=== PATIENT | male | born 1975 | race Caucasian/White ===

== ENCOUNTER 2018-07-10 00:05 | Inpatient (IN) | payer SELFPAY ==
[2018-07-10] MEDS ORDERED: SODIUM CHLORIDE 0.9% 1000 ML INFUS.BAG IV ONE (02:00)
[2018-07-10] MEDS ORDERED: THIAMINE HCL 100 MG TABLET (FP) PO ONE (02:01)
[2018-07-10] MEDS ORDERED: FOLIC ACID 1 MG TABLET (FP) PO ONE (02:01)
[2018-07-10 02:31] LABS: BASO % 0.3 % (0-2.0); EOS % 0.8 % (0-4.5); HEMATOCRIT 43.9 % (35.4-49); HEMOGLOBIN 14.9 GM/dL (11.7-16.9); LYMPH % 49.8 % (8-40); MCHC 33.9 g/dl (32.0-35.9); MEAN CELL VOLUME 94.4 fl (80-96); MONO % 5.7 % (3.8-10.2); NEUT % 43.4 % (42.8-82.8); PLATELET COUNT 184 K/MM3 (134-434); RBC 4.65 M/mm3 (4.00-5.60); RDW 13.1 % (11.9-15.9); WHITE BLOOD COUNT 6.5 K/mm3 (4.0-10.0)
[2018-07-10] MEDS ORDERED: THIAMINE HCL 100 MG TABLET (FP) ONE (02:34)
[2018-07-10] MEDS ORDERED: FOLIC ACID 1 MG TABLET (FP) ONE (02:35)
--- NOTE | 2018-07-10 02:52 | PDOC ---
History of Present Illness - General Chief Complaint: Alcohol intoxication Stated Complaint: INTOX Time Seen by Provider: 07/10/18 01:26 History Source: Patient Exam Limitations: No Limitations - History of Present Illness Initial Comments: 07/10/18 02:51 42 yo male with h/o etoh abuse, epilepsy and withdrawal seizures, was sober for 6 mo, recently relapsed and drinking for 2 weeks. here with his partner who states pt has been having seizures frequently during night over last few weeks. patient states he would like to detox. has been through detox before. pt states last drink was just prior to arrival . no trauma. denies any n/v. prior to drinking pt was having seizures every few years. per his partner, pt has strong family h/o epilepsy has been having seizures since he was a teenager, but has not seen a nuerologist and refuses to take medication for it. he also started drinking at an early age in teen years. 07/10/18 03:02 Past History - Past Medical History Allergies/Adverse Reactions: Allergies Allergy/AdvReac Type Severity Reaction Status Date / Time No Known Allergies Allergy Verified 07/10/18 02:06 - Suicide/Smoking/Psychosocial Hx Smoking History: Current some day smoker Have you smoked in the past 12 months: Yes Information on smoking cessation initiated: No Hx Alcohol Use: Yes Drug/Substance Use Hx: No Review of Systems - Review of Systems Constitutional: No: Chills, Diaphoresis HEENTM: No: Eye Pain Respiratory: No: Cough, Orthopnea Cardiac (ROS): No: Chest Pain, Edema : No: Burning, Dysuria, Discharge Musculoskeletal: No: Back Pain All Other Systems: Reviewed and Negative *Physical Exam - Vital Signs Last Vital Signs Temp Pulse Resp BP Pulse Ox 98.2 F 96 H 17 136/85 97 07/10/18 00:05 07/10/18 00:05 07/10/18 00:05 07/10/18 00:05 07/10/18 00:05 - Physical Exam Comments: 07/10/18 03:04 awake alert lungs clear bilaterally heart rrr no mrg abd soft nt nd. ext wwp no edema. alert oriented x 3. moves all four ext. Heart Score/ECG Review #1 ECG reviewed & interpreted by me at: 06:48 General ECG Interpretation: Sinus Rhythm, Normal Rate (65), Normal Intervals, No acute ischemic changes ED Treatment Course - LABORATORY CBC & Chemistry Diagram: 07/10/18 02:25 07/10/18 02:25 - ADDITIONAL ORDERS Additional order review: 07/10/18 02:25 RBC 4.65 MCV 94.4 MCHC 33.9 RDW 13.1 MPV 7.0 L Neutrophils % 43.4 Lymphocytes % 49.8 H Monocytes % 5.7 Eosinophils % 0.8 Basophils % 0.3 - Medications Given in the ED: ED Medications Discontinued Medications Generic Name Dose Route Start Last Admin Trade Name Dayna PRN Reason Stop Dose Admin Folic Acid 1 mg 07/10/18 02:01 07/10/18 02:39 Folic Acid - PO 07/10/18 02:02 1 mg ONCE ONE Administration Sodium Chloride 1,000 ml 07/10/18 02:00 07/10/18 02:27 Normal Saline - IV 07/10/18 02:01 1,000 ml ONCE ONE Administration Thiamine HCl 100 mg 07/10/18 02:01 07/10/18 02:39 Vitamin B1 - PO 07/10/18 02:02 100 mg ONCE ONE Administration Medical Decision Making - Medical Decision Making 07/10/18 03:05 42 yo M h/o seizure disorder, etoh abuse, here with recent binging, and frequent seizures per his partner. differential etoh intox, electrolyte abnoramlity, withdrawal vs. epileptic seizures. plan labs ivf, thiamine folate. when clear will d/w [facility] for possible detox. 07/10/18 04:07 pt intoxicated etoh level 350. given ativan 2 mg iv for agitation. noted elevated liver enzymes, d/w pt and his . will require admission for h/o withdrawal seizure, sobriety, called [facility] no answer 07/10/18 05:27 d/w admitting team. nessa admit for etoh withdrawal. *DC/Admit/Observation/Transfer Diagnosis at time of Disposition: Seizure disorder, Alcohol intoxication - Discharge Dispostion Condition at time of disposition: Fair Decision to Admit order: Yes - Referrals - Patient Instructions - Post Discharge Activity
[2018-07-10 03:09] LABS: COCAINE, UR NEGATIVE ng/ml (CUTOFF=300); METHADONE, UR NEGATIVE ng/ml (CUTOFF=300); OPIATES, URI NEGATIVE ng/ml (CUTOFF=300); PHENCYCLIDINE,URINE NEGATIVE ng/ml (CUTOFF=25); URINE AMPHETAMINES NEGATIVE ng/ml (CUTOFF=500); URINE BARBITURATES NEGATIVE ng/ml (CUTOFF=200); URINE BENZODIAZEPINES NEGATIVE ng/ml (CUTOFF=200)
[2018-07-10 03:24] LABS: ALK PHOS 108 U/L (45-117); ANION GAP 7 MMOL/L (8-16); BILIRUBIN,TOTAL 0.2 mg/dL (0.2-1); BLOOD UREA NITROGEN 5 mg/dL (7-18); CALCIUM 8.3 mg/dL (8.5-10.1); CHLORIDE 106 mmol/L (98-107); CO2 33 mmol/L (21-32); CREATININE 1.1 mg/dL (0.55-1.3); GLUCOSE,RANDOM 96 mg/dL (74-106); LIPASE 123 U/L (73-393); POTASSIUM 4.7 mmol/L (3.5-5.1); SGOT/AST 63 U/L (15-37); SGPT/ALT 67 U/L (13-61); SODIUM 146 mmol/L (136-145); TOT PROT 7.9 g/dl (6.4-8.2)
[2018-07-10] MEDS ORDERED: LORazepam 2 MG/ML SDV VIAL ONE (04:04)
[2018-07-10] MEDS ORDERED: LORazepam 1 MG TABLET PO PRN ×2 (05:25→15:44)
--- NOTE | 2018-07-10 05:31 | PN ---
Teaching Attending Note Name of Resident: Skyla Chand ATTENDING PHYSICIAN STATEMENT I saw and evaluated the patient. I reviewed the resident's note and discussed the case with the resident. I agree with the resident's findings and plan as documented. SUBJECTIVE: Patient is a 42 year old man with PMH of alcohol abuse, tobacco use, epilepsy and withdrawal seizures here with his partner who states he has been having seizures frequently during night over last few weeks. Patient states he would like to detox. Has been through detox before. States last drink was just prior to arrival. Denies trauma, nausea, vomiting, chest pain, fever, chills, photophobia, diarrhea or dysuria. Prior to drinking he was having seizures every few years. Per his partner, patient has strong family history of epilepsy and has been having seizures since he was a teenager, but has not seen a nuerologist and refuses to take medication for it. He also started drinking at an early age as a teenager. OBJECTIVE: Alert Vital Signs Period Temp Pulse Resp BP Sys/Cruz Pulse Ox Last 24 Hr 98.2 F 96 17 136/85 97-100 HEENT: No Jaundice, eye redness or discharge, PERRLA, EOMI. Normocephalic, atraumatic. External ears are normal and hearing is grossly intact. No nasal discharge. Neck: Supple, nontender. No palpable adenopathy or thyromegaly. No JVD Chest: Good effort. Clear to auscultation and percussion. Heart: Regular. No S3, rub or murmur Abdomen: Not distended, soft, nontender and no HSM. No rebound or guarding. Normal bowel sounds. Ext: Peripheral pulses intact. No leg edema. Skin: Warm and dry. No petechiae, rash or ecchymosis. Neuro: Alert. Oriented to person and place. CN 2-12 grossly intact. Sensation grossly intact in all four extremities and DTR are symmetric. Psych: Appropriate mood and affect. Poor insight. Abnormal Lab Results 07/10/18 07/10/18 02:25 02:25 MPV 7.0 L Lymphocytes % 49.8 H Sodium 146 H Carbon Dioxide 33 H Anion Gap 7 L BUN 5 L Calcium 8.3 L AST 63 H ALT 67 H Alcohol, Quantitative 355.3 H ASSESSMENT AND PLAN: 1. Alcohol intoxication/Epilepsy - He had been prescribed anticonvulsant medications by a neurologist for epilepsy and he has not been taking it. Recent seizures while actively drinking suggests that the seizures were most likely due to his epilepsy and not alcohol withdrawal. Will get a head CT, c-spine CT, EEG, EKG and consult neurology. Will give banana bag. Implement CIWA ativan alcohol withdrawal protocol and do neurochecks. Implement seizure, fall and aspiration precautions. Treat with thiamine and folic acid and monitor electrolytes (Ca,Mg,K,P). Counseled patient about abstaining from alcohol. Will consult cyber transport systems specialist and refer to alcohol detox upon discharge. 2. Tobacco Use Counseled on risks associated with tobacco use. We will provide patient all the necessary assistance to facilitate smoking cessation and prescribe Nicotine patch. 3. Obesity Counseled on the risks associated with obesity. Will provide patient all the necessary assistance, counseling and positive reinforcement to facilitate weight loss. Consult business administration instructor. 4. DVT prophylaxis - Lovenox 40 mg SQ q 24 hours. 5. Advance directives - Full code
[2018-07-10] MEDS ORDERED: LACTATED RINGERS SOLUTION 1,000 ML IV SCH (05:45)
--- NOTE | 2018-07-10 05:54 | HP ---
CHIEF COMPLAINT: EtOH intoxication PCP: none HISTORY OF PRESENT ILLNESS: Patient is a 42 y/o M w/ PMHx EtOH abuse, epilepsy, had been sober for 6 months until recent relapse, has been intoxicated and seizing over past two weeks unclear if withdrawal or epileptiform. Has seen neurologists previously and been prescribed AEDs but has refused regular neurologic care. EtOH level 355 on presentation. Tachycardic, otherwise afebrile w/ stable vitals. Labs notable for mild LFT elevations 60s/60s. Given ativan, folate, thiamine in ED. Denies tremors, hallucinations, change in sensation, diaphoresis. CIWA unobtainable d/ t EtOH level and administration of benzo. ER course was notable for: (1) AST/ALT to 60s (2) EtOH 355 (3) Recent Travel: PAST MEDICAL HISTORY: As per [facility] PAST SURGICAL HISTORY: Social History: Smoking: Alcohol: Drugs: Family History: Allergies No Known Allergies Allergy (Verified 07/10/18 02:06) HOME MEDICATIONS: REVIEW OF SYSTEMS As per [facility] PHYSICAL EXAMINATION Vital Signs - 24 hr 07/10/18 07/10/18 00:05 02:45 Temperature 98.2 F Pulse Rate 96 H Respiratory 17 Rate Blood Pressure 136/85 O2 Sat by Pulse 97 100 Oximetry (%) GENERAL: Lethargic, oriented to name and time HEENT: NC/AT, EOMI, PERRLA, anicteric, MMM NECK: Normal range of motion, supple without lymphadenopathy, JVD, or masses. LUNGS: CTA b/l HEART: tachycardic no m/r/g ABDOMEN: +bs, soft, NT, ND MUSCULOSKELETAL: Normal range of motion at all joints. No bony deformities or tenderness. No CVA tenderness. UPPER EXTREMITIES: 2+ pulses, warm, well-perfused. No cyanosis. No clubbing. No peripheral edema. LOWER EXTREMITIES: 2+ pulses, warm, well-perfused. No calf tenderness. No peripheral edema. NEUROLOGICAL: heel seat filler, motor, sensory systems w/o focal deficit, no tremors, no asterixis PSYCHIATRIC: confused, lethargic SKIN: Warm, dry, normal turgor, no rashes or lesions noted, normal capillary refill. No jaundice. Laboratory Results - last 24 hr 07/10/18 07/10/18 07/10/18 02:25 02:25 02:51 WBC 6.5 RBC 4.65 Hgb 14.9 Hct 43.9 MCV 94.4 MCH 32.0 MCHC 33.9 RDW 13.1 Plt Count 184 MPV 7.0 L Absolute Neuts (auto) 2.8 Neutrophils % 43.4 Lymphocytes % 49.8 H Monocytes % 5.7 Eosinophils % 0.8 Basophils % 0.3 Nucleated RBC % 0 Sodium 146 H Potassium 4.7 Chloride 106 Carbon Dioxide 33 H Anion Gap 7 L BUN 5 L Creatinine 1.1 Creat Clearance w eGFR 72.72 Random Glucose 96 Calcium 8.3 L Total Bilirubin 0.2 AST 63 H ALT 67 H Alkaline Phosphatase 108 Total Protein 7.9 Albumin 4.0 Lipase 123 Opiates Screen Negative Methadone Screen Negative Barbiturate Screen Negative Phencyclidine Screen Negative Ur Amphetamines Screen Negative MDMA (Ecstasy) Screen Negative Benzodiazepines Screen Negative Cocaine Screen Negative U Marijuana (THC) Screen Negative Alcohol, Quantitative 355.3 H ASSESSMENT/PLAN: 42 y/o M w/ PMHx EtOH abuse, epilepsy, p/w EtOH intoxication after recent relapse from sobriety w/ Sz activity reported by , withdrawal vs epileptic relapse. -LFTs elevated -hepatitis panels -Ativan protocol -head CT -f/u EKG -neurology consulted -fall precautions -folate, thiamine, banana bag -LR @ 75 -f/u BMP, Mg, Phos -Lovenox sq for DVT PPx -regular diet Visit type - Emergency Visit Emergency Visit: Yes Care time: The patient presented to the Emergency Department on the above date and was hospitalized for further evaluation of their emergent condition. - New Patient This patient is new to me today: Yes Date on this admission: 07/10/18 - Critical Care Critical Care patient: No
[2018-07-10] MEDS ORDERED: LORazepam 0.5 MG TABLET ONE ×2 (06:39→10:23)
[2018-07-10] MEDS: LORazepam 1 MG TABLET PO SCH ×4 (06:42→22:53)
--- NOTE | 2018-07-10 08:57 | CON.NEURO ---
Consult - Alcohol/Substance Use Hx Alcohol Use: Yes - Smoking History Smoking history: Current some day smoker Have you smoked in the past 12 months: Yes Home Medications - Allergies Allergies/Adverse Reactions: Allergies Allergy/AdvReac Type Severity Reaction Status Date / Time No Known Allergies Allergy Verified 07/10/18 02:06 Physical Exam-Neuro Vital Signs: Vital Signs Temperature 98.0 F 07/10/18 07:00 Pulse Rate 68 07/10/18 07:00 Respiratory Rate 15 07/10/18 07:00 Blood Pressure 132/74 07/10/18 07:00 O2 Sat by Pulse Oximetry (%) 98 07/10/18 07:00 Labs: CBC, BMP 07/10/18 02:25 07/10/18 02:25 Assessment/Plan CC Breakthrough seizure HPI 42 year old male history of epilepsy and etoh abuse. He was sober for six month prior to binge episode recently.He has been drinking for two weeks. As per partner he has been having generalized tonic clonic seizure. There is no tongue bite , his ct head is normal. Patient etoh level were above 350 and he was intoxicated when he arrived at ed. Patient could not tell how long he had seizure or if seizure are related to alcohol withdrawal. He did play soccer before and had concussion as well. He runs restaurant . PMH as above SH,FH,ROS reviewed in chart No Known Allergies Allergy (Verified 07/10/18 02:06) HOME medication none - was prescribed aed and not sure about name and not taking it NEUROLOGICAL EXAMINATION Alert oriented x 3, afebrile and no neck stiffness eomi, pupils reactive, no face asymmetry moving all ext sensation is normal gait not checked ct head is normal Assessment/Plan Breakthrough seizure, unclear if these are alcohol withdrawal related seizure as his level was 350 at admission. Though possibility of epilpetic seizure secondary to prior concussion injury cant be ruled out. Plan: suggest to start keppra 1 gm po bid - general supportive care - eeg - seizure precautions - folic acid, thiamine and mvi - No need for mri of brain, can be done outpatient Thanking you so much Garcia Avina MD
[2018-07-10] MEDS ORDERED: ENOXAPARIN NA (PORCINE) 40 MG/0.4 ML DISP.SYRIN SQ SCH (10:00)
[2018-07-10] MEDS ORDERED: levETIRAcetam 500 MG TABLET (FP) PO SCH (10:00)
[2018-07-10] MEDS ORDERED: THIAMINE HCL 100 MG TABLET (FP) PO SCH (10:00)
[2018-07-10] MEDS ORDERED: FOLIC ACID 1 MG TABLET (FP) PO SCH (10:00)
[2018-07-10] MEDS ORDERED: levETIRAcetam 500 MG TABLET (FP) PO ONE (10:23)
[2018-07-10 11:04] LABS: BASO % 0.4 % (0-2.0); EOS % 1.1 % (0-4.5); HEMATOCRIT 39.4 % (35.4-49); HEMOGLOBIN 13.5 GM/dL (11.7-16.9); LYMPH % 47.3 % (8-40); MCH 32.2 pg (25.7-33.7); MCHC 34.3 g/dl (32.0-35.9); MEAN CELL VOLUME 93.7 fl (80-96); MEAN PLT VOLUME 7.1 fl (7.5-11.1); MONO % 6.4 % (3.8-10.2); NEUT % 44.8 % (42.8-82.8); PLATELET COUNT 141 K/MM3 (134-434); RBC 4.21 M/mm3 (4.00-5.60); RDW 12.9 % (11.9-15.9); WHITE BLOOD COUNT 4.7 K/mm3 (4.0-10.0)
[2018-07-10 11:24] LABS: ANION GAP 4 MMOL/L (8-16); BLOOD UREA NITROGEN 6 mg/dL (7-18); CALCIUM 7.9 mg/dL (8.5-10.1); CHLORIDE 107 mmol/L (98-107); CO2 32 mmol/L (21-32); CREATININE 0.9 mg/dL (0.55-1.3); GLUCOSE,RANDOM 92 mg/dL (74-106); MAGNESIUM 1.9 mg/dL (1.8-2.4); PHOSPHOROUS 3.8 mg/dL (2.5-4.9); POTASSIUM 3.7 mmol/L (3.5-5.1); SODIUM 142 mmol/L (136-145)
--- NOTE | 2018-07-10 16:35 | EKG ---
Test Reason : Blood Pressure : / mmHG Vent. Rate : 065 BPM Atrial Rate : 065 BPM P-R Int : 156 ms QRS Dur : 092 ms QT Int : 410 ms P-R-T Axes : 014 056 054 degrees QTc Int : 426 ms NORMAL SINUS RHYTHM NORMAL ECG NO PREVIOUS ECGS AVAILABLE Confirmed by SUZANNA PÉREZ, JOSEPH ([id number]) on 07/10/2018 4:35:38 PM Referred By: Confirmed By:JOSEPH BRISENO MD
--- NOTE | 2018-07-10 16:58 | PN ---
Physical Exam: SUBJECTIVE: Patient seen and examined this AM. Admits to being noncompliant with physician follow up or medication use. Last seizure was months ago. Had been sober however recently started EtOH use again. Feels better since admission. OBJECTIVE: Vital Signs Period Temp Pulse Resp BP Sys/Cruz Pulse Ox Last 24 Hr 98.0 F-98.2 F 57-96 10-17 119-136/74-85 96-100 GENERAL: A&Ox3, lying comfortably HEAD: NCAT EYES: PERRL, EOMI ENT: moist mucous membranes NECK: Supple LUNGS: CTA b/l, no wheezes, no crackles HEART: Regular rate and rhythm, S1, S2 without murmur ABDOMEN: Soft, nontender, nondistended, + bowel sounds, no guarding EXTREMITIES: no edema NEUROLOGICAL: Cranial nerves II through XII grossly intact. SKIN: Warm, dry Laboratory Results - last 24 hr 07/10/18 07/10/18 07/10/18 02:25 02:25 02:51 WBC 6.5 RBC 4.65 Hgb 14.9 Hct 43.9 MCV 94.4 MCH 32.0 MCHC 33.9 RDW 13.1 Plt Count 184 MPV 7.0 L Absolute Neuts (auto) 2.8 Neutrophils % 43.4 Lymphocytes % 49.8 H Monocytes % 5.7 Eosinophils % 0.8 Basophils % 0.3 Nucleated RBC % 0 Sodium 146 H Potassium 4.7 Chloride 106 Carbon Dioxide 33 H Anion Gap 7 L BUN 5 L Creatinine 1.1 Creat Clearance w eGFR 72.72 Random Glucose 96 Calcium 8.3 L Phosphorus Magnesium Total Bilirubin 0.2 AST 63 H ALT 67 H Alkaline Phosphatase 108 Total Protein 7.9 Albumin 4.0 Lipase 123 Opiates Screen Negative Methadone Screen Negative Barbiturate Screen Negative Phencyclidine Screen Negative Ur Amphetamines Screen Negative MDMA (Ecstasy) Screen Negative Benzodiazepines Screen Negative Cocaine Screen Negative U Marijuana (THC) Screen Negative Alcohol, Quantitative 355.3 H 07/10/18 07/10/18 10:40 10:40 WBC 4.7 RBC 4.21 Hgb 13.5 Hct 39.4 MCV 93.7 MCH 32.2 MCHC 34.3 RDW 12.9 Plt Count 141 D MPV 7.1 L Absolute Neuts (auto) 2.1 Neutrophils % 44.8 Lymphocytes % 47.3 H Monocytes % 6.4 Eosinophils % 1.1 Basophils % 0.4 Nucleated RBC % 0 Sodium 142 Potassium 3.7 Chloride 107 Carbon Dioxide 32 Anion Gap 4 L BUN 6 L Creatinine 0.9 Creat Clearance w eGFR 91.67 Random Glucose 92 Calcium 7.9 L Phosphorus 3.8 Magnesium 1.9 Total Bilirubin AST ALT Alkaline Phosphatase Total Protein Albumin Lipase Opiates Screen Methadone Screen Barbiturate Screen Phencyclidine Screen Ur Amphetamines Screen MDMA (Ecstasy) Screen Benzodiazepines Screen Cocaine Screen U Marijuana (THC) Screen Alcohol, Quantitative Active Medications Enoxaparin Sodium (Lovenox -) 40 mg SQ DAILY [facility] Folic Acid (Folic Acid -) 1 mg PO DAILY [facility] Lactated Ringer's (Lactated Ringers Solution) 1,000 mls @ 75 mls/hr IV ASDIR [facility] Levetiracetam (Keppra -) 1,000 mg PO BID [facility] Lorazepam (Ativan -) 0.5 mg PO Q4H PRN PRN Reason: Symptoms of Withdrawal Stop: 07/13/18 04:59 Lorazepam (Ativan -) 1 mg PO Q4H PRN PRN Reason: Symptoms of Withdrawal Stop: 07/12/18 05:00 Lorazepam (Ativan -) 0.5 mg PO Q6H [facility] Stop: 07/12/18 05:01 Lorazepam (Ativan -) 1 mg PO 0500,1100,1700,2300 [facility] Stop: 07/10/18 23:01 Thiamine HCl (Vitamin B1 -) 100 mg PO DAILY [facility] IMAGING: -Head CT without contrast: Normal CT brain noncontrast study, no evidence of acute intracranial hemorrhage, edema, midline shift, mass effect, acute ischemic changes, skull fracture. -EKG: NSR, VR 65, QTc 426 ASSESSMENT/PLAN: 42 y/o M w/ PMHx EtOH abuse, epilepsy, presents with EtOH intoxication and will be admitted for recent Seizure activity. #Seizure -Likely due to EtOH withdrawal vs Epilepsy from noncompliance -Head CT Noted above -Neurology consulted, Appreciate rec's -Started on Levetiracetam 1,000mg BID -EEG pending -Seizure, Fall precautions #EtOH Withdrawal -EtOH level 355, UTox neg, Hep panel pending -Lorazepam Protocol initiated -Continue thiamine/folate/ banana bag -Monitor CIWA score and for withdrawal symptoms -Neurochecks Q2H -LR @ 75 mls/hr #Elevated LFTs -Mildly elevated in the setting of EtOH use -Trend; Will consider further imaging if continue to rise #FEN -LR @ 75 mls/hr -Monitor lytes -Regular diet #PPx -DVT: Lovenox Dispo: Monitor on Med-Surg Visit type - Emergency Visit Emergency Visit: Yes ED Registration Date: 07/10/18 Care time: The patient presented to the Emergency Department on the above date and was hospitalized for further evaluation of their emergent condition. - New Patient This patient is new to me today: Yes Date on this admission: 07/10/18 - Critical Care Critical Care patient: No - Discharge Referral Referred to [facility] Med [facility] No
[2018-07-10 18:58] VITALS: BMI 31.1
--- NOTE | 2018-07-10 18:59 | PN ---
Teaching Attending Note Name of Resident: Delaney Gutierrez ATTENDING PHYSICIAN STATEMENT I saw and evaluated the patient. I reviewed the resident's note and discussed the case with the resident. I agree with the resident's findings and plan as documented. SUBJECTIVE: Patient is feeling better today. No further seizure activity. OBJECTIVE: Vital Signs Temperature 98.3 F 07/10/18 18:00 Pulse Rate 84 07/10/18 18:00 Respiratory Rate 14 07/10/18 18:00 Blood Pressure 137/89 07/10/18 18:00 O2 Sat by Pulse Oximetry (%) 96 07/10/18 15:28 GENERAL: The patient is awake, alert, and fully oriented, in no acute distress. HEAD: Normal with no signs of trauma. EYES: PERRL, extraocular movements intact, sclera anicteric, conjunctiva clear. ENT: Ears normal, oropharynx clear without exudates, moist mucous membranes. NECK: Trachea midline, full range of motion, supple. LUNGS: Breath sounds equal, clear to auscultation bilaterally, no wheezes, no crackles, no accessory muscle use. HEART: Regular rate and rhythm, S1, S2 without murmur, rub or gallop. ABDOMEN: Soft, nontender, nondistended, normoactive bowel sounds, no guarding, no rebound, no hepatosplenomegaly, no masses. EXTREMITIES: 2+ pulses, warm, well-perfused, no edema. NEUROLOGICAL: Cranial nerves II through XII grossly intact. Normal speech, gait not observed. PSYCH: Normal mood, normal affect. SKIN: Warm, dry, normal turgor, no rashes or lesions noted CBCD WBC 4.7 K/mm3 (4.0-10.0) 07/10/18 10:40 RBC 4.21 M/mm3 (4.00-5.60) 07/10/18 10:40 Hgb 13.5 GM/dL (11.7-16.9) 07/10/18 10:40 Hct 39.4 % (35.4-49) 07/10/18 10:40 MCV 93.7 fl (80-96) 07/10/18 10:40 MCHC 34.3 g/dl (32.0-35.9) 07/10/18 10:40 RDW 12.9 % (11.9-15.9) 07/10/18 10:40 Plt Count 141 K/MM3 (134-434) D 07/10/18 10:40 MPV 7.1 fl (7.5-11.1) L 07/10/18 10:40 CMP Sodium 142 mmol/L (136-145) 07/10/18 10:40 Potassium 3.7 mmol/L (3.5-5.1) 07/10/18 10:40 Chloride 107 mmol/L (98-107) 07/10/18 10:40 Carbon Dioxide 32 mmol/L (21-32) 07/10/18 10:40 Anion Gap 4 MMOL/L (8-16) L 07/10/18 10:40 BUN 6 mg/dL (7-18) L 07/10/18 10:40 Creatinine 0.9 mg/dL (0.55-1.3) 07/10/18 10:40 Creat Clearance w eGFR 91.67 (>60) 07/10/18 10:40 Random Glucose 92 mg/dL (74-106) 07/10/18 10:40 Calcium 7.9 mg/dL (8.5-10.1) L 07/10/18 10:40 Total Bilirubin 0.2 mg/dL (0.2-1) 07/10/18 02:25 AST 63 U/L (15-37) H 07/10/18 02:25 ALT 67 U/L (13-61) H 07/10/18 02:25 Alkaline Phosphatase 108 U/L (45-117) 07/10/18 02:25 Total Protein 7.9 g/dl (6.4-8.2) 07/10/18 02:25 Albumin 4.0 g/dl (3.4-5.0) 07/10/18 02:25 Current Medications Generic Name Dose Route Start Last Admin Trade Name Freq PRN Reason Stop Dose Admin Enoxaparin Sodium 40 mg 07/11/18 10:00 Lovenox - SQ DAILY [facility] Folic Acid 1 mg 07/11/18 10:00 Folic Acid - PO DAILY [facility] Lactated Ringer's 1,000 mls @ 75 mls/hr 07/10/18 15:44 Lactated Ringers Solution IV ASDIR [facility] Levetiracetam 1,000 mg 07/10/18 22:00 Keppra - PO BID [facility] Lorazepam 0.5 mg 07/11/18 05:00 Ativan - PO 07/13/18 04:59 Q4H PRN Symptoms of Withdrawal Lorazepam 1 mg 07/10/18 15:44 Ativan - PO 07/12/18 05:00 Q4H PRN Symptoms of Withdrawal Lorazepam 0.5 mg 07/11/18 05:00 Ativan - PO 07/12/18 05:01 Q6H [facility] Lorazepam 1 mg 07/10/18 17:00 07/10/18 17:13 Ativan - PO 07/10/18 23:01 1 mg 0500,1100,1700,2300 [facility] Administration Thiamine HCl 100 mg 07/11/18 10:00 Vitamin B1 - PO DAILY [facility] Home Medications Medication Instructions Recorded Unobtainable 07/10/18 -Head CT without contrast: Normal CT brain noncontrast study, no evidence of acute intracranial hemorrhage, edema, midline shift, mass effect, acute ischemic changes, skull fracture. -EKG: NSR, VR 65, QTc 426 ASSESSMENT AND PLAN: Patient is a 42 y/o Male with PMHx EtOH abuse, epilepsy, presents with EtOH intoxication and will be admitted for recent Seizure activity. #Acute Seizure activity witnessed by a family member , as per patient his last seizure was many months back -On Levetiracetam 1,000mg BID a per Neuro. EEG pending follow with neurology for the result. Neuro consult apperciated. Seizure, Fall precautions #EtOH Withdrawal: continue thiamine/folic acid , monitor for withdrawel, on ativan protocol continue #Elevated LFTs will trend #DVT px: Lovenox
[2018-07-10] MEDS: levETIRAcetam 500 MG TABLET (FP) PO SCH (21:08)
[2018-07-10] MEDS: LACTATED RINGERS SOLUTION 1,000 ML IV SCH (21:08)
[2018-07-11 02:11] LABS: HBSAG SCREEN Negative (Negative); HEP B CORE AB, TOT Negative (Negative)
[2018-07-11] MEDS ORDERED: LORazepam 0.5 MG TABLET PO SCH (05:00)
[2018-07-11] MEDS ORDERED: LORazepam 0.5 MG TABLET PO PRN ×2 (05:00)
[2018-07-11] MEDS: LORazepam 0.5 MG TABLET PO SCH ×2 (06:04→12:22)
[2018-07-11 07:17] LABS: BASO % 0.3 % (0-2.0); EOS % 1.3 % (0-4.5); HEMATOCRIT 40.3 % (35.4-49); HEMOGLOBIN 13.7 GM/dL (11.7-16.9); LYMPH % 40.1 % (8-40); MCH 31.6 pg (25.7-33.7); MEAN PLT VOLUME 7.6 fl (7.5-11.1); MONO % 7.7 % (3.8-10.2); NEUT % 50.6 % (42.8-82.8); PLATELET COUNT 136 K/MM3 (134-434); RBC 4.34 M/mm3 (4.00-5.60); RDW 12.8 % (11.9-15.9); WHITE BLOOD COUNT 5.2 K/mm3 (4.0-10.0)
[2018-07-11 07:38] LABS: ALK PHOS 73 U/L (45-117); ANION GAP 4 MMOL/L (8-16); BILIRUBIN,TOTAL 0.7 mg/dL (0.2-1); BLOOD UREA NITROGEN 8 mg/dL (7-18); CALCIUM 8.3 mg/dL (8.5-10.1); CHLORIDE 105 mmol/L (98-107); CO2 31 mmol/L (21-32); CREATININE 0.9 mg/dL (0.55-1.3); GLUCOSE,RANDOM 89 mg/dL (74-106); MAGNESIUM 1.6 mg/dL (1.8-2.4); PHOSPHOROUS 3.5 mg/dL (2.5-4.9); POTASSIUM 3.7 mmol/L (3.5-5.1); SGOT/AST 36 U/L (15-37); SGPT/ALT 48 U/L (13-61); SODIUM 139 mmol/L (136-145); TOT PROT 6.1 g/dl (6.4-8.2)
[2018-07-11] MEDS: LACTATED RINGERS SOLUTION 1,000 ML IV SCH (09:37)
[2018-07-11] MEDS ORDERED: FOLIC ACID 1 MG TABLET (FP) PO SCH (10:00)
[2018-07-11] MEDS ORDERED: ENOXAPARIN NA (PORCINE) 40 MG/0.4 ML DISP.SYRIN SQ SCH (10:00)
[2018-07-11] MEDS ORDERED: THIAMINE HCL 100 MG TABLET (FP) PO SCH (10:00)
[2018-07-11] MEDS: levETIRAcetam 500 MG TABLET (FP) PO SCH (10:24)
[2018-07-11] MEDS ORDERED: MAGNESIUM SULF 50% (8.12 MEQ/2 ML-1 GM VIAL) IVPB ONE (11:45)
--- NOTE | 2018-07-11 13:35 | PN ---
Progress Note (short form) - Note Progress Note: 42 year old male history of epilepsy and etoh abuse. He was sober for six month prior to binge episode recently.He has been drinking for two weeks. As per partner he has been having generalized tonic clonic seizure. There is no tongue bite , his ct head is normal. Patient etoh level were above 350 and he was intoxicated when he arrived at ed. Patient could not tell how long he had seizure or if seizure are related to alcohol withdrawal. He did play soccer before and had concussion as well. 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 Though possibility of epilpetic seizure secondary to prior concussion injury cant be ruled out. Plan: continue keppra 1 gm po bid - general supportive care - eeg pending - seizure precautions - folic acid, thiamine and mvi - No need for mri of brain, can be done outpatient follow up outpatient Thanking you so much Garcia Avina MD
[2018-07-11] MEDS ORDERED: levETIRAcetam 500 MG TABLET (FP) PO ONE (14:15)
[2018-07-11 14:38] VITALS: BP 146/88; PULSE 61; TEMP 98.3
--- NOTE | 2018-07-11 15:59 | PN ---
Teaching Attending Note Name of Resident: Delaney Gutierrez ATTENDING PHYSICIAN STATEMENT I saw and evaluated the patient. I reviewed the resident's note and discussed the case with the resident. I agree with the resident's findings and plan as documented. SUBJECTIVE: Patient is comfortable, no withdrawel , will discharge the patient , family member at bedside , will take the patient home. OBJECTIVE: Vital Signs Temperature 98.3 F 07/11/18 14:00 Pulse Rate 61 07/11/18 14:00 Respiratory Rate 20 07/11/18 14:00 Blood Pressure 146/88 07/11/18 14:00 O2 Sat by Pulse Oximetry (%) 96 07/11/18 09:00 Initial Vital Signs Temp Pulse Resp BP Pulse Ox 98.2 F 96 H 17 136/85 97 07/10/18 00:05 07/10/18 00:05 07/10/18 00:05 07/10/18 00:05 07/10/18 00:05 GENERAL: The patient is awake, alert, and fully oriented, in no acute distress. HEAD: Normal with no signs of trauma. EYES: PERRL, extraocular movements intact, sclera anicteric, conjunctiva clear. ENT: Ears normal, oropharynx clear without exudates, moist mucous membranes. NECK: Trachea midline, full range of motion, supple. LUNGS: Breath sounds equal, clear to auscultation bilaterally, no wheezes, no crackles, no accessory muscle use. HEART: Regular rate and rhythm, S1, S2 without murmur, rub or gallop. ABDOMEN: Soft, nontender, nondistended, normoactive bowel sounds, no guarding, no rebound, no hepatosplenomegaly, no masses. EXTREMITIES: 2+ pulses, warm, well-perfused, no edema. NEUROLOGICAL: Cranial nerves II through XII grossly intact. Normal speech, no tremor. PSYCH: Normal mood, normal affect. SKIN: Warm, dry, normal turgor, no rashes or lesions noted Home Medications Medication Instructions Recorded Thiamine HCl [Vitamin B1 -] 100 mg PO DAILY tablet 07/11/18 levETIRAcetam [Keppra -] 1,000 mg PO BID #60 tablet 07/11/18 Laboratory Last Values WBC 5.2 K/mm3 (4.0-10.0) 07/11/18 06:10 RBC 4.34 M/mm3 (4.00-5.60) 07/11/18 06:10 Hgb 13.7 GM/dL (11.7-16.9) 07/11/18 06:10 Hct 40.3 % (35.4-49) 07/11/18 06:10 MCV 93.0 fl (80-96) 07/11/18 06:10 MCH 31.6 pg (25.7-33.7) 07/11/18 06:10 MCHC 34.0 g/dl (32.0-35.9) 07/11/18 06:10 RDW 12.8 % (11.9-15.9) 07/11/18 06:10 Plt Count 136 K/MM3 (134-434) 07/11/18 06:10 MPV 7.6 fl (7.5-11.1) 07/11/18 06:10 Absolute Neuts (auto) 2.6 K/mm3 (1.5-8.0) 07/11/18 06:10 Neutrophils % 50.6 % (42.8-82.8) 07/11/18 06:10 Lymphocytes % 40.1 % (8-40) H 07/11/18 06:10 Monocytes % 7.7 % (3.8-10.2) 07/11/18 06:10 Eosinophils % 1.3 % (0-4.5) 07/11/18 06:10 Basophils % 0.3 % (0-2.0) 07/11/18 06:10 Nucleated RBC % 0 % (0-0) 07/11/18 06:10 Sodium 139 mmol/L (136-145) 07/11/18 06:10 Potassium 3.7 mmol/L (3.5-5.1) 07/11/18 06:10 Chloride 105 mmol/L (98-107) 07/11/18 06:10 Carbon Dioxide 31 mmol/L (21-32) 07/11/18 06:10 Anion Gap 4 MMOL/L (8-16) L 07/11/18 06:10 BUN 8 mg/dL (7-18) 07/11/18 06:10 Creatinine 0.9 mg/dL (0.55-1.3) 07/11/18 06:10 Creat Clearance w eGFR 91.67 (>60) 07/11/18 06:10 Random Glucose 89 mg/dL (74-106) 07/11/18 06:10 Calcium 8.3 mg/dL (8.5-10.1) L 07/11/18 06:10 Phosphorus 3.5 mg/dL (2.5-4.9) 07/11/18 06:10 Magnesium 1.6 mg/dL (1.8-2.4) L 07/11/18 06:10 Total Bilirubin 0.7 mg/dL (0.2-1) 07/11/18 06:10 AST 36 U/L (15-37) 07/11/18 06:10 ALT 48 U/L (13-61) 07/11/18 06:10 Alkaline Phosphatase 73 U/L (45-117) 07/11/18 06:10 Total Protein 6.1 g/dl (6.4-8.2) L 07/11/18 06:10 Albumin 3.0 g/dl (3.4-5.0) L 07/11/18 06:10 Lipase 123 U/L (73-393) 07/10/18 02:25 Opiates Screen Negative ng/ml (HSGYVQ=275) 07/10/18 02:51 Methadone Screen Negative ng/ml (TXXQOU=877) 07/10/18 02:51 Barbiturate Screen Negative ng/ml (URHBYN=663) 07/10/18 02:51 Phencyclidine Screen Negative ng/ml (CUTOFF=25) 07/10/18 02:51 Ur Amphetamines Screen Negative ng/ml (RHSQKD=014) 07/10/18 02:51 MDMA (Ecstasy) Screen Negative ng/ml (OPLOHX=508) 07/10/18 02:51 Benzodiazepines Screen Negative ng/ml (YNVENZ=613) 07/10/18 02:51 Cocaine Screen Negative ng/ml (FXZNHW=716) 07/10/18 02:51 U Marijuana (THC) Screen Negative ng/ml (CUTOFF=50) 07/10/18 02:51 Alcohol, Quantitative 355.3 mg/dL (0.0-5.0) H 07/10/18 02:25 Hepatitis A Ab Total Negative (Negative) 07/10/18 08:00 Hep Bs Antigen Negative (Negative) 07/10/18 08:00 Hep Bs Antibody Non reactive (.) 07/10/18 08:00 Hep B Core Total Ab Negative (Negative) 07/10/18 08:00 -Head CT without contrast: Normal CT brain noncontrast study, no evidence of acute intracranial hemorrhage, edema, midline shift, mass effect, acute ischemic changes, skull fracture. -EKG: NSR, VR 65, QTc 426 ASSESSMENT AND PLAN: Patient is a 42yo male with PMHx with EtOH abuse, epilepsy, presents with EtOH intoxication and will be admitted for recent Seizure activity. #Acute Seizure activity witnessed by a family member , as per patient his last seizure was many months back, will discharge the patient on Levetiracetam 1, 000mg BID , EEG pending, patient will follow with Neuro. . Seizure, Fall precautions #EtOH Withdrawal: completed the detox protocol , continue thiamine/folic acid. #Elevated LFTs back to normal. discharge patient home on keppera with follow up visit with .
--- NOTE | 2018-07-11 17:29 | DS ---
Physical Exam: SUBJECTIVE: Patient seen and examined this AM. No new complaints. No acute overnight events as per nursing. OBJECTIVE: Vital Signs Period Temp Pulse Resp BP Sys/Cruz Pulse Ox Last 24 Hr 98.3 F-98.6 F 54-84 14-20 130-146/75-89 96-98 PHYSICAL EXAM GENERAL: A&Ox3, lying comfortably HEAD: NCAT EYES: PERRL, EOMI ENT: moist mucous membranes NECK: Supple LUNGS: CTA b/l, no wheezes, no crackles HEART: Regular rate and rhythm, S1, S2 without murmur ABDOMEN: Soft, nontender, nondistended, + bowel sounds, no guarding EXTREMITIES: no edema NEUROLOGICAL: Cranial nerves II through XII grossly intact. SKIN: Warm, dry LABS Laboratory Results - last 24 hr 07/10/18 07/11/18 07/11/18 08:00 06:10 06:10 WBC 5.2 RBC 4.34 Hgb 13.7 Hct 40.3 MCV 93.0 MCH 31.6 MCHC 34.0 RDW 12.8 Plt Count 136 MPV 7.6 Absolute Neuts (auto) 2.6 Neutrophils % 50.6 Lymphocytes % 40.1 H Monocytes % 7.7 Eosinophils % 1.3 Basophils % 0.3 Nucleated RBC % 0 Sodium 139 Potassium 3.7 Chloride 105 Carbon Dioxide 31 Anion Gap 4 L BUN 8 Creatinine 0.9 Creat Clearance w eGFR 91.67 Random Glucose 89 Calcium 8.3 L Phosphorus 3.5 Magnesium 1.6 L Total Bilirubin 0.7 AST 36 ALT 48 Alkaline Phosphatase 73 Total Protein 6.1 L Albumin 3.0 L Hepatitis A Ab Total Negative Hep Bs Antigen Negative Hep Bs Antibody Non reactive Hep B Core Total Ab Negative IMAGING: -Head CT without contrast: Normal CT brain noncontrast study, no evidence of acute intracranial hemorrhage, edema, midline shift, mass effect, acute ischemic changes, skull fracture. -EKG: NSR, VR 65, QTc 426 HOSPITAL COURSE: Date of Admission:07/10/18 Date of Discharge: 07/11/18 42 y/o M w/ PMHx EtOH abuse, epilepsy, presents with EtOH intoxication and will be admitted for recent Seizure activity. Imaging was done noted above. Neurology was consulted and recommended Candido. Patient was started on Ativan protocol and additionally treated with thiamine, folate and a banana bag. Patient was discharged home with strict instruction to avoid alcohol, follow up with neurology and medication adherence. Minutes to complete discharge: 36 Discharge Summary Reason For Visit: ALCOHOL WITHDRAWAL SYNDROME Condition: Improved - Instructions Diet, Activity, Other Instructions: You came to the hospital after having a seizure. We started you on a detox protocol for your alcohol withdrawal. Medication Changes: 1. Continue Keppra 1000mg twice a day. Please continue taking it to avoid any seizure activity. Follow up with the following physicians: 1. PCP in one week--Dr. Purdy 2. Neurologist in one week--Dr. Avina Please refrain from alcohol use, excessive use can trigger seizure activity. Therefore suggestive to complete abstinence of alcohol use. Please return to the ER if you have any signs or symptoms of chest pain, shortness of breath, uncontrollable fever, chills, nausea, vomiting, numbness, tingling, or weakness in any part of your body, changes in vision, slurred speech, changes in speech/gait, or dizziness. Please return to the ER if symptoms persist, worsen, or new symptoms arise. Referrals: Garcia Avina MD [Staff Physician] - Jeremias Purdy MD [Staff Physician] - Disposition: HOME - Home Medications Comprehensive Discharge Medication List: Ambulatory Orders Thiamine HCl [Vitamin B1 -] 100 mg PO DAILY tablet 07/11/18 levETIRAcetam [Keppra -] 1,000 mg PO BID #60 tablet 07/11/18 This patient is new to me today: No Emergency Visit: Yes ED Registration Date: 07/10/18 Care time: The patient presented to the Emergency Department on the above date and was hospitalized for further evaluation of their emergent condition. Critical Care patient: No - Discharge Referral Referred to [facility] Med [facility] No
== END 2018-07-11 15:43 | disposition home or self-care (01) | DRG 775 ==
LOC: JER 00:05 → JERBED 05:28 → J6S 15:36
PROVIDERS: ADMIT Internal Medicine; ATTEND Internal Medicine
DX: F10.230 Alcohol dependence with withdrawal, uncomplicated (principal); G40.409 Other generalized epilepsy and epileptic syndromes, not intractable, without status epilepticus; F10.220 Alcohol dependence with intoxication, uncomplicated; Y90.8 Blood alcohol level of 240 mg/100 ml or more; E66.9 Obesity, unspecified; Z68.31 Body mass index [BMI] 31.0-31.9, adult
CPT/HCPCS: 36415; 70450-TC; 80048; 80053; 80307; 83690; 83735; 84100; 85025; 86704; 86706; 86708; 87340; 93005; 93010; 95816; 99285-25; J7030